=== PATIENT | male | born 1995 | race Caucasian/White ===

== ENCOUNTER 2019-08-11 21:41 | Emergency (ER) | payer OTHER ==
[2019-08-11] MEDS ORDERED: Benzocaine 20% Topical Spray UD MUCMEM ONE (21:52)
[2019-08-11] MEDS ORDERED: Lidocaine 2% Viscous Solution 15 ML Cup PO ONE (21:52)
--- NOTE | 2019-08-11 21:55 | EDM.PDOC ---
ED HPI GENERAL MEDICAL PROBLEM - General Stated Complaint: PT HAS MOUTH PAIN Time Seen by Provider: 08/11/19 21:49 Source of Information: Reports: Patient History Limitations: Reports: No Limitations - History of Present Illness INITIAL COMMENTS - FREE TEXT/NARRATIVE: HISTORY AND PHYSICAL: History of present illness: Patient is a 24-year-old male who presents to the emergency room with complaints of gum-line pain on the top and bottom of the left side of his mouth. Patient states this started 3 days ago, however after waking up from his nap today it has increased in pain. He rates the pain at a 7 out of 10, describing it as throbbing. He states it does hurt in his jaw. He denies sore throat, ear pain, or headache. Nothing alleviates or aggravates his pain. States he does return to his home town next week and will follow up with a dentist. He did inform me on examination that he quit chewing tobacco approximately one month ago. Review of systems: As per history of present illness and below otherwise all systems reviewed and negative. Past medical history: As per history of present illness and as reviewed below otherwise noncontributory. Surgical history: As per history of present illness and as reviewed below otherwise noncontributory. Social history: See social history for further information Family history: As per history of present illness and as reviewed below otherwise noncontributory. Physical exam: General: Well-developed and well-nourished 24-year-old male. Alert and oriented. Nontoxic appearing and in no acute distress. HEENT: Atraumatic, normocephalic, pupils equal and reactive bilaterally, negative for conjunctival pallor or scleral icterus, mucous membranes moist, multiple dental caries, erythema, gumline of of tooth #24 through #21.TMs normal bilaterally, throat clear, neck supple, nontender, trachea midline. No drooling or trismus noted. No meningeal signs. No hot potato voice noted. Lungs: Clear to auscultation, breath sounds equal bilaterally, chest nontender. Heart: S1S2, regular rate and rhythm without overt murmur Abdomen: Soft, nondistended, nontender. Skin: Intact, warm, dry. No lesions or rashes noted. Extremities: Atraumatic, moves all extremities per self without difficulty or deficits, negative for cords or calf pain. Neurovascular unremarkable. Neuro: Awake, alert, oriented. Cranial nerves II through XII unremarkable. Cerebellum unremarkable. Motor and sensory unremarkable throughout. Exam nonfocal. Notes: Medication and supportive care measures were reviewed and discussed. Voices understanding and is agreeable to plan of care. Denies any further questions or concerns at this time. Diagnostics: None Therapeutics: Dental Balls, Toradol Prescription: Clindamycin Impression: Multiple dental carries Gingivitis Plan: 1. Please take the antibiotic as prescribed. 2. Tylenol and/or ibuprofen as needed for pain management. "Tooth Balls" have been given to you; apply along the gumline every 2-3 hours as needed. Do not swallow these; external use only. 3. Follow-up with a dentist for definitive care. Return to the ED as needed and as discussed. Definitive disposition and diagnosis as appropriate pending reevaluation and review of above. - Related Data Allergies Allergy/AdvReac Type Severity Reaction Status Date / Time No Known Allergies Allergy Verified 08/11/19 21:57 Home Meds: Home Meds . [No Known Home Meds] 08/11/19 [History] ED ROS ENT - Review of Systems Review Of Systems: ROS reveals no pertinent complaints other than HPI. ED EXAM, ENT - Physical Exam Exam: See Below (See dictation) Course - Vital Signs Last Recorded V/S: Last Vital Signs Temp 97.3 F 08/11/19 21:57 Pulse 60 08/11/19 21:57 Resp 18 08/11/19 21:57 BP 142/81 H 08/11/19 21:57 Pulse Ox 99 08/11/19 21:57 - Orders/Labs/Meds Meds: Medications Discontinued Medications Generic Name Dose Route Start Last Admin Trade Name Ariel PRN Reason Stop Dose Admin Benzocaine 2 each 08/11/19 21:52 08/11/19 22:01 Hurricaine One 20% MUCMEM 08/11/19 21:53 2 each ONETIME ONE Administration Lidocaine HCl 15 ml 08/11/19 21:52 08/11/19 22:01 Xylocaine 2% Viscous PO 08/11/19 21:53 15 ml ONETIME ONE Administration Departure - Departure Time of Disposition: 22:09 Disposition: Home, Self-Care 01 Clinical Impression: Gingivitis, Dental caries - Discharge Information Instructions: Gingivitis, [id number] Additional Instructions: The following information is given to patients seen in the emergency department who are being discharged to home. This information is to outline your options for follow-up care. We provide all patients seen in our emergency department with a follow-up referral. The need for follow-up, as well as the timing and circumstances, are variable depending upon the specifics of your emergency department visit. If you don't have a primary care physician on staff, we will provide you with a referral. We always advise you to contact your personal physician following an emergency department visit to inform them of the circumstance of the visit and for follow-up with them and/or the need for any referrals to a consulting specialist. The emergency department will also refer you to a specialist when appropriate. This referral assures that you have the opportunity for follow-up care with a specialist. All of these measure are taken in an effort to provide you with optimal care, which includes your follow-up. Under all circumstances we always encourage you to contact your private physician who remains a resource for coordinating your care. When calling for follow-up care, please make the office aware that this follow-up is from your recent emergency room visit. If for any reason you are refused follow-up, please contact the [facility] Emergency Department at and asked to speak to the emergency department charge nurse. [facility] [address] [place] [id number] [place] [address] 1. Please take the antibiotic as prescribed. 2. Tylenol and/or ibuprofen as needed for pain management. "Tooth Balls" have been given to you; apply along the gumline every 2-3 hours as needed. Do not swallow these; external use only. 3. Follow-up with a dentist for definitive care. Return to the ED as needed and as discussed.
[2019-08-11] MEDS ORDERED: Ketorolac 60 MG/2 ML SDV IM ONE (22:04)
== END 2019-08-11 22:32 | disposition home or self-care (01) ==
LOC: MW.ED 21:41
DX: K05.10 Chronic gingivitis, plaque induced (principal); K02.9 Dental caries, unspecified
CPT/HCPCS: 96372; 99282; A9270; J1885